=== PATIENT | male | born 1950 | race Caucasian/White ===

== ENCOUNTER → 2023-07-14 13:15 | Outpatient (BNVA) | payer MEDICARE, OTHER, SELFPAY | PROVIDERS: PCP Family Medicine; Referring Provider Family Medicine; Visit Provider Internal Medicine | DX: R07.9 Chest pain, unspecified (principal); I44.0 Atrioventricular block, first degree; R06.09 Other forms of dyspnea; R42 Dizziness and giddiness | CPT/HCPCS: 93005; 99204 ==

== ENCOUNTER 2023-07-23 08:13 | Outpatient (CLI) | payer MEDICARE, OTHER, SELFPAY ==
--- NOTE | 2023-07-23 08:30 | USCV_ITS ---
Parth Corona Age: 73 Gender: M : 1950 Exam Date: 07/23/2023 08:23 Ordering Phys: Gato Adam M.D ([email or web address]) Technologist: Anita Cortes Exam Location: [facility] [place] Indication: Alpha Gal Agent [place] BP: 120 / 70 HR: 58 Rhythm: Sinus Technical Quality: Adequate MEASUREMENTS (Male / Female) Normal Values 2D ECHO LV Diastolic Diameter PLAX 3.9 cm 4.2 - 5.9 / 3.9 - 5.3 cm LV Systolic Diameter PLAX 2.7 cm LV Chamber Size 3.5 cm IVS Diastolic Thickness 1.1 cm 0.6 - 1.0 / 0.6 - 0.9 cm IVS Systolic Thickness 2.0 cm LVPW Diastolic Thickness 1.3 cm 0.6 - 1.0 / 0.6 - 0.9 cm LVPW Systolic Thickness 1.7 cm RV Chamber Size 3.5 cm LVOT Diameter 2.1 cm LV Ejection Fraction 2D Teich 59.5 % LV Ejection Fraction MOD 2C 48.9 % LV Ejection Fraction 2C AL 48.1 % LA Diameter 3.8 cm LA Width 2.2 cm LA Height 3.0 cm RA Width 3.0 cm RA Height 3.4 cm Aorta at Sinotubular Diameter 3.5 cm IVC Diameter 1.2 cm M-MODE Aortic Annulus Diameter 4.1 cm LA Ao Ratio MM 1.2 MV E Point Septal Separation 0.4 cm DOPPLER AV Peak Velocity 115.0 cm/s LVOT Peak Velocity 80.0 cm/s AV Area Cont Eq vti 2.6 cm squared AV Area Cont Eq pk 2.4 cm squared MV Area PHT 6.5 cm squared Mitral E to A Ratio 0.7 MV E' Velocity 38.5 cm/s Mitral E to MV E' Ratio 5.6 Mitral E to LV E' Lateral Ratio 5.2 Mitral E to LV E' Septal Ratio 6.2 TR Peak Velocity 244.3 cm/s TR Peak Gradient 23.9 mmHg TR Mean Velocity 168.2 cm/s TR Mean Gradient 12.9 mmHg TR Velocity Time Integral 68.7 cm TV Peak E Velocity 81.0 cm/s Right Atrial Pressure 3.0 mmHg Pulmonary Artery Systolic Pressu 26.9 mmHg PV Peak Velocity 62.0 cm/s RV Acceleration Time 0.2 s RV Ejection Time 0.4 s RV AcT/ET 0.4 FINDINGS Left Ventricle Normal left ventricular size and systolic function, EF 68 %. Mild left ventricular hypertrophy. No regional wall motion abnormalities. Grade I/IV diastolic dysfunction (abnormal relaxation filling pattern), normal to mildly elevated filling pressures. Right Ventricle The right ventricle is normal in size and function. Right Atrium The right atrium is normal in size. Left Atrium The left atrium is normal in size. Mitral Valve No gross abnormalities noted Aortic Valve Thickened aortic valve. Trace aortic valve regurgitation. Tricuspid Valve Mild tricuspid valve regurgitation. Pulmonic Valve Pulmonic valve not well visualized. Pericardium Normal pericardium without effusion. Aorta Normal ascending aorta dimension. IVC Normal inferior vena cava. CONCLUSIONS Normal left ventricular size and systolic function, EF 68 %. Mild left ventricular hypertrophy. No regional wall motion abnormalities. Grade I/IV diastolic dysfunction (abnormal relaxation filling pattern), normal to mildly elevated filling pressures. Thickened aortic valve. Trace aortic valve regurgitation. Mild tricuspid valve regurgitation. Estimated pulmonary artery peak systolic pressure 27 mmHg There is no pericardial effusion. There are no intracardiac masses. No similar previous studies are available for comparison Dr Reilly Tuttle MD [facility] (Electronically Signed) Final Date: 24 July 2023 09:56 S
== END 2023-07-23 08:14 | disposition home or self-care (01) ==
LOC: RAD 08:13
PROVIDERS: PCP Family Medicine; Visit Provider Internal Medicine
DX: R06.02 Shortness of breath (principal); R07.9 Chest pain, unspecified
CPT/HCPCS: 93306

== ENCOUNTER → 2023-08-06 14:06 | Outpatient (BNVA) | payer MEDICARE, OTHER, SELFPAY | PROVIDERS: PCP Family Medicine; Visit Provider Internal Medicine Cardiovascular Disease | DX: R07.2 Precordial pain (principal); I44.1 Atrioventricular block, second degree; R55 Syncope and collapse; R06.02 Shortness of breath; R06.09 Other forms of dyspnea | CPT/HCPCS: 99215 ==

== ENCOUNTER 2023-08-21 09:35 | Observation (INO) | payer MEDICARE, OTHER, SELFPAY ==
[2023-08-21] VITALS (19 sets, daily range): BP systolic 92–167; BP diastolic 64–100; PULSE 38–68; RESP 6–29; O2SAT 98; BMI 29.9
[2023-08-21] MEDS: diphenhydrAMINE 50 mg Capsule PO (07:30)
--- NOTE | 2023-08-21 07:30 | XACV_ITS ---
Exam Room: 2 Ht: 183 cm Wt: 100 kg BSA: 2.28 m2 Gender: Male : 1950 Exam Priority: Routine Procedure(s): Procedure Description: Diagnostic procedure Procedure Description: Left Heart Catheterization Procedure Description: Coronary Angiography Procedure Description: Pressure Wire Parag HODGE; Diagnostic Cath Status: Elective Diagnostic Findings * INDICATION: Dyspnea on exertion/chest pain/ heart block. * Left Main has no significant disease. * Right Coronary Artery has mild luminal irregularities. * Mid Circumflex: moderate 40-50% stenosis, CIERRA: 3 flow. * Mid Left Anterior Descending: moderate 50% stenosis, CIERRA: 3 flow. * Coronary angiography shows right dominance. PCI Status: Elective PCI Indication: Other Interventional Findings * Procedure details: Being the left main artery with XB 3.0 guide catheter. IV heparin was administered to maintain anticoagulation. After normalization, IFR wire was advanced into the distal left circumflex artery.iFR value of 1.0 was obtained. We then advanced wire into distal LAD. iFR value of 0.93 was obtained. As both values were nonischemic, medical therapy was decided. iFR wire and guide catheter were removed. 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 Conclusions 1. Moderate LAD stenosis. iFR is non-ischemic. Moderate mid left circumflex artery stenosis. iFR is non-ischemic. Recommendations * Aggressive risk factor modification. * Outpatient cardiology follow up in 4 weeks. Interventional RX Recommendation: medical therapy and/or counseling Anticoagulation: Heparin Pressures Phase:Rest AO : 130 / 80 ( 103 ) @ 8:53:00 AM 110 / 69 ( 88 ) @ 8:54:00 AM 112 / 68 ( 89 ) @ 8:56:00 AM 137 / 72 ( 100 ) @ 9:04:00 AM 133 / 59 ( 92 ) @ 9:10:00 AM 135 / 78 ( 104 ) @ 9:17:00 AM 159 / 73 ( 114 ) @ 9:28:00 AM 163 / 80 ( 114 ) @ 9:28:00 AM LV : 161 / -1 / 20 @ 9:27:00 AM Valves Phase:DefaultPhase AV : 12.0 @ 9:33:22 AM 12.0 @ 9:33:22 AM AV Mean Gradient: 13.0 @ 9:33:22 AM 13.0 @ 9:33:22 AM Clinical Evaluation EBL: 5mL-10mL Procedural Details Pre-Procedure Time Out. Identified patient by full name and date of as verbalized by the patient/guarantor. Does the consent match the physician's order: Yes. Accurate & Complete Informed Consent: Yes. Inpatient/Outpatient History & Physical on Chart: Yes. If H&P is completed, is and addenduem needed: No; If yes, is the addendum complete: N/A. Visualize and Verify Site with Patient/Guarantor: N/A. Relevant Radiology Images available: Yes. Pre-op teaching completed and patient verbalized understanding. The risks, benefits, and alternatives of sedation and/or procedure were discussed by physician. The patient agrees to continue. Procedure started. Physician scrubbed in. Current Diagnosis : Chest Pain. Immediate Pre-Procedure Time Out. Correct Patient: Yes; Correct Procedure: Yes; Correct Site: Yes; Correct Patient Position: Yes; Correct Supplies: Yes; Dried Flammable Prep: Yes; Blood Products Available: N/A;. Lidocaine 1% infiltrated to the right radial. Arterial access obtained. A 5 czech TIG catheter in over wire. Multiple views taken of left coronary artery. Catheter redirected to the RCA. Multiple views taken of right coronary artery. Catheter removed over the exchange wire. Physician review of cine films. 6 czech XB 3.5 guide catheter was inserted over the wire. IFR guidewire was advanced through the guide catheter to lesion in the mid Circ. IFR Results: 1.00 Wire redirected to the mid LAD. Wire out. Guide catheter out. 6 czech XB 3 guide catheter was inserted over the wire. IFR guidewire was advanced through the guide catheter to lesion in the mid LAD. IFR Results: 0.93. Wire out. Results checked. Guide catheter out. A 5 czech TIG catheter in over wire. EDP Sample taken: LV 161/-2,20; HR: 64 BPM; SpO2: 99%. Pullback taken: LV Off; AO 159/73(114); Mean: 13mmHg, Peak to Peak: 12mmHg, SEP: 22sec/min; HR: 66 BPM; SpO2: 99%. Catheter removed over the exchange wire. Vital chart was stopped. A TR Band was successful obtaining hemostatsis at the Right Radial artery insertion site. Post Procedure: Pulses reassessed and unchanged. PERRLA. Strong, equal hand php web developer bilaterally. No VTE prophylaxis required. Medication's Wasted: Nitro = 49.6 mcg. Medication's Wasted: Heparin = 1000 units. Total IV fluids: 70 mL. Complications: None. Estimated blood loss: 5mL-10mL. Responsiveness - Normal response to verbal stimuli; alert and oriented, PERRLA. Airway - Unaffected, no intervention required; spontaneous ventilation. Circulation: W/N/L, pulses unchanged. Nausea/Vomiting: No. Procedure completed. Patient transferred by wheelchair to 1st floor. Access Site Site: Right Radial artery Sheath Size: 6 Fr Hemostasis Method: TR Band Hemostasis Success: Successful Procedure Medications Start: 8:38 AM Stop: 8:38 AM Medication: Versed Amount: 1 mg Route: I.V. Start: 8:38 AM Stop: 8:38 AM Medication: Fentanyl Amount: 50 mcg Route: I.V. Start: 8:49 AM Stop: 8:49 AM Medication: Versed 1 mg and Fentanyl 25 mcg Amount: 1 Route: I.V. Start: 8:50 AM Stop: 8:50 AM Medication: Nitrogylcerin Amount: 200 mcg Route: I.A. Start: 8:52 AM Stop: 8:52 AM Medication: Heparin Amount: 5000 units Route: I.V. Start: 9:00 AM Stop: 9:00 AM Medication: Heparin Amount: 3000 units Route: I.V. Start: 9:06 AM Stop: 9:06 AM Medication: Fentanyl Amount: 25 mcg Route: I.V. Start: 9:13 AM Stop: 9:13 AM Medication: Nitrogylcerin Amount: 200 mcg Route: I.A. Start: 9:13 AM Stop: 9:13 AM Medication: Heparin Amount: 2000 units Route: I.V. I, the attending physician, have reviewed and verified all procedure medications. Yes, all medications given per verbal order History/Risk Factors Hypertension: No Dyslipidemia: No Peripheral Arterial Disease (PAD): No Myocardial Infarction (CT): No Obesity: No Renal Disease: No Tobacco Use: Former Prior Interventions PCI: No CABG: No Valve Surgery: No Report Signatures Finalized by Gato Adam MD on 08/31/2023 02:34 PM
[2023-08-21 07:33] LABS: Basophils # 0.1 10^3/uL (0.0-0.1); Basophils % 0.8 %; Eosinophils # 0.2 10^3/uL (0.0-0.8); Eosinophils % 2.9 %; Hematocrit 50.1 % (37-53); Lymphocytes # 1.5 10^3/uL (0.8-4.8); Lymphocytes % 19.5 %; Mean Corpuscular HGB Conc 33.7 g/dL (30-55); Mean Corpuscular Hemoglobin 33.5 pg (27-33); Mean Corpuscular Volume 99.2 fl (82-101); Mean Platelet Volume 10.5 fL (7.4-10.4); Monocytes # 0.9 10^3/uL (0.2-0.9); Monocytes % 11.2 %; Neutrophils # 4.97 10^3/uL (1.8-7.7); Neutrophils % 65.3 %; Nucleated Red Blood Cells % 0 %; Platelet Count 221 10^3/cmm (157-399); Red Blood Count 5.05 10^6/uL (3.85-5.65); Red Cell Distribution Width 12.5 % (12.1-15.1)
[2023-08-21 07:42] LABS: Glucose Point of Care 89 mg/dL (70-110)
[2023-08-21 07:49] LABS: Anion Gap 9.9 (5-19); Blood Urea Nitrogen 13 mg/dL (8-23); Calcium 8.8 mg/dL (8.5-10.5); Carbon Dioxide 31 mmol/L (22-29); Chloride 104 mmol/L (98-107); Glucose 104 mg/dL (65-115); Osmolality Calculated 292 mOsm/kg (285-295); Potassium 3.9 mmol/L (3.5-5.1); Sodium 141 mmol/L (136-145)
--- NOTE | 2023-08-21 08:27 | W.PM.OPSUD ---
Surgery/Procedure H&P Update DATE OF PROCEDURE: August 21, 2023 DATE H&P PERFORMED: 08/06/23 H&P UPDATE INFORMATION: I have reviewed H&P completed within last 30 days, I have examined patient prior to procedure and No changes to prior documentation PREOP DIAGNOSIS: Dyspnea on exertion/chest pain/ heart block PRIMARY INDICATION FOR PROCEDURE: Dyspnea on exertion/chest pain/ heart block PLANNED PROCEDURE: Operation Date: 08/21/23 08:30 Proposed Procedures p [facility] [id number],R07.9(Left) - Gato Adam M.D Possible percutaneous coronary intervention PATIENT REASSESSED PRIOR TO SEDATION, WITH NO CHANGE NOTED: Yes PHYSICAL EXAM: alert, oriented x 3, clear to auscultation bilaterally and regular rate & rhythm
--- NOTE | 2023-08-21 14:20 | PC.NURSE ---
discharge papers provided to pt educated pt to monitor for any symptoms of passing out, syncopal episodes or dizziness. educated pt on wound intermediate instructions post angiogram such as act. restrictions.
== END 2023-08-21 14:21 | disposition home or self-care (01) ==
LOC: CSU 09:39
PROVIDERS: Admitting Provider Internal Medicine; PCP Family Medicine; Visit Provider Internal Medicine
DX: I25.10 Atherosclerotic heart disease of native coronary artery without angina pectoris (principal); R07.9 Chest pain, unspecified; R06.00 Dyspnea, unspecified; Z87.891 Personal history of nicotine dependence; I44.1 Atrioventricular block, second degree; Z79.82 Long term (current) use of aspirin
CPT/HCPCS: 36415; 36416; 80048; 82962; 85025; 93458; 93571; 93572; 96361; 96365; 99152; 99153; C1769; C1887; C1894; G0378; J1644; J2250; J3010; J3490; J7030; Q0163; Q9967

== ENCOUNTER → 2023-08-28 10:03 | Outpatient (BNVA) | payer MEDICARE, OTHER, SELFPAY | PROVIDERS: PCP Family Medicine; Visit Provider Nurse Practitioner Family | DX: R07.2 Precordial pain (principal) | CPT/HCPCS: 99214 ==

== ENCOUNTER → 2023-09-17 14:52 | Outpatient (BNVA) | payer MEDICARE, OTHER, SELFPAY | PROVIDERS: PCP Family Medicine; Visit Provider Internal Medicine Cardiovascular Disease | DX: I44.1 Atrioventricular block, second degree (principal); E78.5 Hyperlipidemia, unspecified; I25.10 Atherosclerotic heart disease of native coronary artery without angina pectoris; Z87.891 Personal history of nicotine dependence | CPT/HCPCS: 99214 ==

== ENCOUNTER 2023-09-24 09:24 | Outpatient (CLI) | payer MEDICARE, OTHER, SELFPAY ==
[2023-09-24 10:13] LABS: Alanine Aminotransferase 23 U/L (0-41); Albumin Level 4.2 g/dL (3.5-5.2); Alkaline Phosphatase 86 U/L (40-130); Aspartate Amino Transferase 19 U/L (0-40); Chol HDL Ratio 4.07 mg/dL (1.0-5.00); Cholesterol 183 mg/dL (0-200); Globulin 2.3 g/dL (1.3-4.6); HDL Cholesterol 45 mg/dL (60-100); LDL Cholesterol Calculated 115 mg/dL (50-129); LDL HDL Ratio 2.56 RATIO (0.00-3.22); Total Bilirubin 0.6 mg/dL (0.15-1.2); Total Protein 6.5 g/dL (6.6-8.7); Triglycerides 113 mg/dL (0-150)
== END 2023-09-24 09:25 | disposition home or self-care (01) ==
LOC: LAB 09:25
PROVIDERS: PCP Family Medicine; Visit Provider Internal Medicine Cardiovascular Disease
DX: E78.5 Hyperlipidemia, unspecified (principal)
CPT/HCPCS: 36415; 80061; 80076

== ENCOUNTER → 2024-01-01 08:53 | Outpatient (BNVA) | payer MEDICARE, OTHER, SELFPAY | PROVIDERS: PCP Family Medicine; Visit Provider Nurse Practitioner Family | DX: I44.2 Atrioventricular block, complete (principal) | CPT/HCPCS: 99213 ==

== ENCOUNTER → 2024-06-29 11:06 | Outpatient (BNVA) | payer MEDICARE, OTHER, SELFPAY | PROVIDERS: PCP Family Medicine; Visit Provider Internal Medicine Cardiovascular Disease | DX: R07.2 Precordial pain (principal); R06.09 Other forms of dyspnea; I25.10 Atherosclerotic heart disease of native coronary artery without angina pectoris; E78.5 Hyperlipidemia, unspecified; I10 Essential (primary) hypertension; Z87.891 Personal history of nicotine dependence | CPT/HCPCS: 99214 ==

== ENCOUNTER 2024-07-14 08:36 | Outpatient (CLI) | payer MEDICARE, OTHER, SELFPAY ==
--- NOTE | 2024-07-14 | ECG_ITS ---
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 Interpretive Statements Lung unchanged pre/post procedure; Intraprocedure shortess of breath; Symptoms resoled by discharge PROCEDURE: The baseline electrocardiogram showed normal sinus rhythm with normal ST-Ts. First-degree AV block. At the baseline, the patient's blood pressure was 126/65 mm Hg with a heart rate of 72/min. The patient exercised for 4 minutes and 35 seconds on a standard Julius protocol. Patient attained a maximum heart rate of 132 beats per minute(91% of the maximum predicted heart rate) with a blood pressure at the peak exercise of 157/73 mm Hg. The EKG at the peak exercise revealed [address] depression in leads V4, V5 and V6. Some nonspecific ST changes in the inferior leads.. Patient did not have any chest pain or any significant new arrhythmis with the exercise Sestamibi was injected 1 minute prior to the peak exercise During the recovery phase, the EKG reverted back to the baseline. There was a brief episode of second-degree type I AV block with junctional escape beats. Blood pressure went up to 204/89 at 3 minutes of recovery and returned to 155/72 at 5 minutes and 32 seconds CONCLUSION: 1. Abnormal EKG response to treadmill exercise suggesting ischemia in the anterolateral wall region 2. No exercise-induced chest pain or significant cardiac arrhythmia 3. Slightly impaired exercise tolerance, attained a maximum of 7.0 METs 4. Sestamibi/Sestamibi perfusion results pending; see separate report. Electronically Signed On 07-17-2024 12:34:03 PATTERN MARKING SUPERVISOR by Reilly Tuttle M.D. [email or web address]
[2024-07-14 09:26] VITALS: BMI 29.2
--- NOTE | 2024-07-14 09:27 | NMCV_ITS ---
NM zoltan perf SPECT r/s* [id number] Parth Corona Age: 74 Gender: M : 1950 Exam Date: 07/14/2024 09:27 Ordering Phys: Reilly Tuttle MD ([email or web address]) Technologist: STACEY Montero Exam Location: [facility] Indications: cp STRESS TEST Please [facility] IMAGE PROTOCOL Rest/Stress 1 Radiopharmaceutical Dose (mCi) Administration Site Administered by Rest: Tc-99m 9.5 IV STACEY Abbott Sestamibi Stress:Tc-99m 29.4 IV STACEY [place]ares Sestamichris Rest: 14-Jul-2024 60 Discovery 630 Stress: 14-Jul-2024 15 Discovery 630 Images obtained in supine and prone position. Radiopharmaceutical was injected at 87 % maximum heart rate. SPECT RESULTS Technical Quality: Good Raw Data Analysis: Normal Image Corrections: No attenuation or motion correction applied Summed Stress Score: 8 Summed Rest Score: 9 Summed Difference Score: 2 PERFUSION FINDINGS Moderate area of minimal to moderately decreased tracer uptake involving the inferior, inferoseptal, inferolateral and apical lateral regions with a small area of reversibility in the inferoseptal region. FUNCTIONAL RESULTS (calculated via Gated SPECT) Stress Image LV EF (%): 71 Stress EDV (mL):102 TID: 1.23 Stress ESV (mL):30 FUNCTIONAL FINDINGS: Segmental wall motion analysis revealing no gross wall motion abnormalities IMPRESSIONS 1. Myocardial perfusion imaging revealing moderate area of minimal to moderately decreased tracer uptake involving the inferior, inferolateral, inferoseptal and apical lateral regions with a small area of reversibility suggesting myocardial scarring in the distribution of the right coronary artery/circumflex artery with a small area of charisma-infarction ischemia. 2. Normal LV ejection fraction 71%. 3. LV wall motion analysis revealing no gross wall motion abnormalities. 4. Normal LV volume No similar previous studies are available for comparison Dr Reilly Tuttle MD [facility] (Electronically Signed) Final Date: 14 July 2024 17:54 S
[2024-07-14 10:39] VITALS: BP 158/72; PULSE 88
== END 2024-07-14 08:37 | disposition home or self-care (01) ==
LOC: CDL 08:37
PROVIDERS: PCP Family Medicine; Visit Provider Internal Medicine Cardiovascular Disease
DX: Z98.61 Coronary angioplasty status (principal); R94.39 Abnormal result of other cardiovascular function study
CPT/HCPCS: 36415; 78452; 93017; A9500

== ENCOUNTER → 2025-01-25 11:00 | Outpatient (BNVA) | payer MEDICARE, OTHER, SELFPAY | PROVIDERS: PCP Family Medicine; Visit Provider Internal Medicine Cardiovascular Disease | DX: R07.2 Precordial pain (principal); R06.09 Other forms of dyspnea; I25.10 Atherosclerotic heart disease of native coronary artery without angina pectoris; E78.5 Hyperlipidemia, unspecified; I10 Essential (primary) hypertension; Z79.82 Long term (current) use of aspirin; Z87.891 Personal history of nicotine dependence; R07.9 Chest pain, unspecified | CPT/HCPCS: 93005; 99214 ==